=== PATIENT | male | born 1995 ===

== ENCOUNTER 2018-12-03 08:37 | Emergency (ER) | payer SELFPAY ==
--- NOTE | 2018-12-03 09:50 | UC ---
HPI Wound/Suture Re-check - HPI Summary HPI Summary: CHIEF COMPLAINT and HPI: This is a 23 you male with a forehead laceration that is slightly bleeding and has old, self-dissolving sutures in it that haven't been removed. Approximately 3 weeks ago he fell and hit his forehead without LOC. 13 sutures with vicryl like thread were place in the [place]. Since then some of the sutures have unravelled above the skin. There has been no sign of infection. There has been minimal bleeding today from one end of the wound. This area has now crusted over. Pain is described as minimal to none. NURSES NOTE REVIEWED. VITAL SIGNS REVIEWED. VISIT LIST and MEDICAL PROBLEM LIST REVIEWED. CURRENT MEDICATIONS and ALLERGIES REVIEWED. INFORMATION RELEVANT TO CURRENT COMPLAINT: None. Hypertension medication: none. . - History Of Current Complaint Chief Complaint: UCWounds Stated Complaint: WOUND CHECK Time Seen by Provider: 12/03/18 09:45 Hx Obtained From: Patient Pain Intensity: 5 - Allergies/Home Medications Allergies/Adverse Reactions: Allergies Allergy/AdvReac Type Severity Reaction Status Date / Time No Known Allergies Allergy Verified 12/03/18 09:12 Home Medications: Home Medications NK [No Home Medications Reported] 12/03/18 [History Confirmed 12/03/18] PMH/Surg Hx/FS Hx/Imm Hx - Additional Past Medical History Additional PMH: PAST MEDICAL HISTORY is significantly positive for: no admissions for serious illness or surgery. FAMILY HISTORY is negative for hypertension, cardiovascular disease, stroke, diabetes. SOCIAL HISTORY is significant for non-smoker, lives in [facility] and is traveling, and works as a student. Previously Healthy: Yes - Surgical History Surgical History: None - Social History Alcohol Use: None Substance Use Type: None Smoking Status (MU): Never Smoked Tobacco Review of Systems All Other Systems Reviewed And Are Negative: Yes Constitutional: Positive: Negative Respiratory: Positive: Negative. Negative: Shortness Of Breath Cardiovascular: Positive: Negative. Negative: Palpitations Gastrointestinal: Positive: Negative. Negative: Abdominal Pain Genitourinary: Positive: Negative. Negative: Dysuria Is Patient Immunocompromised?: No - Comments Additional Review of Systems Comments: healing forehead superficial laceratioin in area of hairline on the right. Physical Exam Triage Information Reviewed: Yes Appearance: Well-Appearing Vital Signs: Initial Vital Signs Temp 98.6 F 12/03/18 09:06 Pulse 80 12/03/18 09:06 Resp 18 12/03/18 09:06 BP 116/74 12/03/18 09:06 Pulse Ox 98 12/03/18 09:06 Vital Signs Reviewed: Yes Eye Exam: Normal ENT Exam: Normal Dental Exam: Normal Neck exam: Normal Neck: Positive: Supple Respiratory Exam: Normal Respiratory: Positive: Chest non-tender, Lungs clear Cardiovascular Exam: Normal Cardiovascular: Positive: RRR, No Murmur Abdominal Exam: Normal Abdomen Description: Positive: Nontender, No Organomegaly Bowel Sounds: Positive: Present Musculoskeletal Exam: Normal Neurological Exam: Normal Neurological: Positive: Alert Psychological Exam: Normal Psychological: Positive: Age Appropriate Behavior Skin Exam: Normal - Additional Comments healing 4 cm crescent laceration to the right forehead at the hairline. 5 sutures above the skin have not dissolved. Approximately 13 sutures total. 1 cm crusted area along the lateral border of this laceration that is no longer bleeding and remains well approximated. No foreign body reaction to sutures. Course/Dx - Differential Dx - Laceration/Wound Differential Diagnoses: Cellulitis, Healing Wound, Suture Removal - Diagnosis Provider Diagnosis: Laceration, Retained suture Discharge - Sign-Out/Discharge Documenting (check all that apply): Patient Departure All imaging exams completed and their final reports reviewed: No Studies - Discharge Plan Condition: Stable Disposition: HOME Patient Education Materials: Chronic Wound Care (ED) Referrals: No Primary Care Phys,NOPCP [Primary Care Provider] - Additional Instructions: WE DISCUSSED: PLEASE SEEK CARE AT THE EMERGENCY DEPARTMENT IF SYMPTOMS WORSEN OR IF NEW SYMPTOMS DEVELOP. FOLLOW UP WITH YOUR PRIMARY CARE PHYSICIAN IF CONDITION CONTINUES BEYOND 3 DAYS WITHOUT IMPROVEMENT. We are open from 7 a.m. to 10 p.m. Call us with any questions or concerns. YOUR DIAGNOSIS IS: HEALING LACERATION RIGHT FOREHEAD; SUTURES CUT BACK TO SKIN YOUR PRESCRIPTION RECOMMENDATION IS: NONE; NO INFECTION SEEN OTHER INSTRUCTIONS: USE SUNSCREEN; IF ANY OOZING OF BLOOD, USE BAND AID TO KEEP EDGES TOGETHER; RE CHECK IF ANY SIGN OF INFECTION. - Billing Disposition and Condition Condition: STABLE Disposition: Home
== END 2018-12-03 09:59 | disposition home or self-care (01) ==
LOC: UCEAST 08:37
DX: S01.81XD Laceration without foreign body of other part of head, subsequent encounter (principal); W19.XXXD Unspecified fall, subsequent encounter
CPT/HCPCS: 99201; G0463